=== PATIENT | male | born 1985 | race Caucasian/White ===

== ENCOUNTER 2023-05-17 16:06 | Outpatient (AMB) | payer OTHER, SELFPAY ==
--- NOTE | 2023-05-17 16:15 | MHC.OFFWIV ---
Intake Vital Signs 05/17/23 16:16 Height 5 ft 7 in Weight 175 lb 8 oz BMI 27.5 BP 114/80 Blood Pressure Location Rt brachial Position Sitting Pulse 80 Pulse Source Pulse Oximeter Temp 98.9 F Temp Source Oral Pulse Oximetry (%) 97 Oxygen Delivery Method Room Air Intake Visit Reasons: [employer] Upper AB Pain Intake Note: Pt presents to the office today for c/o upper abdominal pain since last night. Pt states it is more in the left side of his abdomen. Pt states he did have a fever this morning that was 100.0 Patient Tobacco Use Status: Former Tobacco user Allergies amoxicillin Allergy (Intermediate, Verified 05/17/23 16:18) Hives HPI HPI Comments History of Present Illness Details Patient is a 37-year-old male in today for a sick visit. Patient states that 1 month prior he caught a stomach bug where he had vomiting and diarrhea for 2 days. Patient states after that he caught an upper respiratory infection where he had headache and was taking ibuprofen frequently. Since then he has developed symptoms of stomach distension, left upper quadrant abdomen pain, gastric reflux. Patient states he was placed on omeprazole 20 mg with limited effect. He does have intermittent constipation and diarrhea. Denies blood in stool. Offer subjective fever last night, does not have fever at appointment today. [facility] Social History Household Members: Spouse Housing: House Alcohol intake: current Alcohol intake frequency: a few times a week Patient Tobacco Use Status: Former Tobacco user Use of substances other than those prescribed or required for medical reasons: Yes Substance Use Type: Marijuana Review of Systems Const Details: Constitutional : No Weight loss, No Fever, Admits Chills, No Fatigue, No Malaise ENT/Mouth : Admits sore throat, No Rhinorrhea Eyes: No Eye Pain, No Swelling, No Redness Cardiovascular : No Chest Pain, No SOB, No Dyspnea on Exertion, No Orthopnea, No Edema, No Palpitations Respiratory : No Cough, No Sputum, No Wheezing Gastrointestinal : No Nausea, No Vomiting, No Diarrhea, Amits some Constipation, No abdominal Pain, No Hematochezia, No Melena, Admits gas, Admits gastric reflux. Admits abdominal pain. Genitourinary : No Dysuria, No Urinary Frequency, No Hematuria, Musculoskeletal : No joint pain, No Myalgias, No Joint Swelling Skin : No Skin Lesions, No rash Neuro : No Weakness, No Numbness, No Dizziness, No Headache Psych : No Anxiety/Panic, No Depression Heme/Lymph: No Bruising, No Bleeding,No Lymphadenopathy Endocrine : No Polyuria, No Polydipsia All other systems reviewed and are negative Physical Exam Vital Signs: Last Vital Signs Temp 98.9 F 05/17/23 16:16 Pulse 80 05/17/23 16:16 BP 114/80 05/17/23 16:16 Pulse Ox 97 05/17/23 16:16 Oxygen Delivery Method Room Air 05/17/23 16:16 BMI result Body Mass Index 27.5 Vital signs reviewed stable. Const Other: Appearance: Alert.? Oriented X3.? No acute distress.? Head: Normocephalic, atraumatic. ENT: Pharynx erythema, cobblestone. Neck: Normal inspection.? Neck supple.? CVS: Normal heart rate and rhythm.? Pulses normal.? Respiratory: No respiratory distress.? Breath sounds normal.? Abdomen: +distention, +LUQ discomfort. +hyperactive bowel sounds. ? Neuro: Oriented X 3.? No motor deficit.? No sensory deficit. CN 2-12 intact Assessment & Plan Assessment & Plan (1) Abdominal pain: Comment: Will draw labs CBC, CMP, ESR, lipase, amylase. Will give patient pantoprazole sodium and for meeting to be taken as directed. Patient instructed he can also utilize simethicone for gas pain. Patient has established GI provider and PCP, should follow-up with them Code(s): R10.9 - Unspecified abdominal pain Qualifiers: Abdominal location: left upper quadrant Qualified Code(s): R10.12 - Left upper quadrant pain Plan: Take your medications as prescribed. If you were prescribed antibiotics today, it is important that you take your medication to their entirety, do not skip any doses, do not finish them early. Follow-up with your primary care provider this week. Return to the emergency department with new or worsening symptoms. Such as fevers, chills, chest pain, shortness of breath, nausea, vomiting, dizziness, headache, vision changes, lethargy In case of emergency call 911 Plan Follow-up with PCP and GI Orders: Orders Erythrocyte Sedimentation Rate Today R10.9 - Unspecified abdominal pain Lipase Today R10.9 - Unspecified abdominal pain Amylase Today R10.9 - Unspecified abdominal pain Complete Blood Count Auto Diff Today D72.829 - Elevated white blood cell count, unspecified Comprehensive Met. Panel Today Z91.89 - Other specified personal risk factors, not elsewhere classified Medications: New pantoprazole 20 mg PO DAILY 30 tabs 0RF famotidine 20 mg PO BEDTIME 30 tabs 0RF simethicone (Gas Relief (simethicone)) 180 mg PO DAILY 30 caps 0RF Coding Level of Care Code Est Pt Level 3 (49871) Diagnoses Left upper quadrant abdominal pain R10.12 Abdominal location: left upper quadrant Time Spent (min) 21
[2023-05-17 16:16] VITALS: BP 114/80; PULSE 80; TEMP 37.2; O2SAT 97; BMI 27.5
== END 2023-05-17 16:53 | disposition home or self-care (01) ==
PROVIDERS: Visit Provider Nurse Practitioner Primary Care
DX: R10.12 Left upper quadrant pain (principal)
CPT/HCPCS: 99204

== ENCOUNTER 2023-05-18 11:01 | Outpatient (REF) | payer OTHER, SELFPAY ==
[2023-05-18 13:34] LABS: MANUAL DIFF FLAG NO
[2023-05-18 13:49] LABS: Basophils Percent Auto 0.5 % (0-2); Eosinophils Percent Auto 0.9 % (0-4); Hematocrit 48.4 % (42.0-52.0); Hemoglobin 16.6 g/dl (14.0-18.0); Lymphocytes Absolute Auto 1.1 X10*3/uL (1.2-4.9); Lymphocytes Percent Auto 26.5 % (20-40); Mean Corpuscular HGB Conc 34.3 g/dl (31.0-36.0); Mean Corpuscular Hemoglobin 30.6 pg (27.0-33.0); Mean Corpuscular Volume 89.1 fL (80.0-98.0); Monocytes Absolute Auto 0.4 X10*3/uL (0.1-1.2); Monocytes Percent Auto 8.1 % (2-11); Neutrophils Absolute Auto 2.8 x10*3/uL (2.0-8.3); Platelet Count 200 X10*3/uL (160-400); Red Blood Count 5.43 X10*6/uL (4.60-5.80); Red Cell Distribution Width 12.4 % (11.0-16.0); White Blood Count 4.3 X10*3/uL (4.8-10.8)
[2023-05-18 14:03] LABS: Alanine Aminotransferase 173 U/L (0-40); Albumin Level 4.3 g/dL (3.5-5.0); Alkaline Phosphatase 118 U/L (39-117); Anion Gap 9 (12-20); Aspartate Amino Transferase 69 U/L (5-37); Bilirubin Total 1.7 mg/dL (0.0-1.0); Blood Urea Nitrogen 10 mg/dL (9-16); Calcium 9.2 mg/dL (8.4-10.2); Carbon Dioxide 30 mmol/L (22-29); Chloride 105 mmol/L (96-108); Estimated Glomerular Filt Rate > 60; Glucose Random 86 mg/dL (60-115); Lipase 20 U/L (8-78); Potassium 3.6 mmol/L (3.3-5.1); Sodium 140 mmol/L (135-145)
[2023-05-18 14:14] LABS: Amylase 29 U/L (28-100)
[2023-05-18 14:24] LABS: Erythrocyte Sedimentation Rate 5 MM/HR (0-15)
== END 2023-05-18 11:02 | disposition home or self-care (01) ==
LOC: HO.HMGCLDS 11:01
PROVIDERS: PCP Nurse Practitioner Primary Care; Visit Provider Nurse Practitioner Primary Care
DX: R10.9 Unspecified abdominal pain (principal); D72.829 Elevated white blood cell count, unspecified; Z91.89 Other specified personal risk factors, not elsewhere classified
CPT/HCPCS: 36415; 80053; 82150; 83690; 85025; 85652

== ENCOUNTER 2023-11-09 12:01 | Day surgery (SDC) | payer OTHER, SELFPAY ==
[2023-11-07 14:04] VITALS: BMI 26.3
--- NOTE | 2023-11-08 10:15 | P.CONAN_ITS ---
Documented by User: Yris Griffin NP 11/08/23 10:16 HPI - Anesthesia Eval Consult details Narrative: 38yo M for Upper Endoscopy PMFSH Active Problems Active Problems: All Active Problems Abdominal pain (Acute) Past Medical History Medical History Fatty liver Surgical History Surgical History Hx laparoscopic cholecystectomy Social History Social History Household Members: Spouse Housing: House Are you a primary caregiver assisted living to a significant other at home: No Do you presently have visiting nurse or other home services: No Alcohol intake: current Alcohol intake frequency: a few times a week Patient Tobacco Use Status: Former Tobacco user Use of substances other than those prescribed or required for medical reasons: Yes Substance Use Type: Marijuana Substance Use Frequency: Occasionally Have you been hit, kicked, punched, or otherwise hurt by someone within the past year? If so, by whom?: No Are you DNR?: No Advance Directives: No Advance Directives Information Provided: Yes Recently lost weight without trying: No Eating poorly because of decreased appetite: No Nutrition Risks: No Nutritional Risk Poor oral hygiene: No Meds Allergies Allergy/AdvReac Type Severity Reaction Status Date / Time amoxicillin Allergy Intermediate Hives Verified 05/17/23 16:18 Home Medications ?Medication ?Instructions ?Recorded ?Confirmed ?Last Taken ?Type colestipol 1 gram tablet 1 g PO DAILY 05/17/23 Unknown History Exam Height,Weight and Vital Signs: Height 5 ft 7 in Weight 76.204 kg Assessment and Plan Assessment Anesthesia Assessment: Chart Reviewed Documented by User: Meka Tavarez MD 11/09/23 13:15 PMFSH Past Medical History Medical History Fatty liver Surgical History Surgical History Hx laparoscopic cholecystectomy History of Problems with Anesthesia: No Social History Social History Household Members: Spouse Housing: House Are you a primary caregiver assisted living to a significant other at home: No Do you presently have visiting nurse or other home services: No Alcohol intake: current Alcohol intake frequency: a few times a week Patient Tobacco Use Status: Former Tobacco user Use of substances other than those prescribed or required for medical reasons: Yes Substance Use Type: Marijuana Substance Use Frequency: Occasionally Have you been hit, kicked, punched, or otherwise hurt by someone within the past year? If so, by whom?: No Are you DNR?: No Advance Directives: No Advance Directives Information Provided: Yes Recently lost weight without trying: No Eating poorly because of decreased appetite: No Nutrition Risks: No Nutritional Risk Poor oral hygiene: No Meds Allergies Allergy/AdvReac Type Severity Reaction Status Date / Time amoxicillin Allergy Intermediate Hives Verified 05/17/23 16:18 Home Medications ?Medication ?Instructions ?Recorded ?Confirmed ?Last Taken ?Type colestipol 1 gram tablet 1 g PO DAILY 05/17/23 Unknown History Exam Airway Mallampati Class: III TM Dist: >3cm Neck ROM: Full Loose/Missing/Broken Teeth: No Heart: RRR Lungs: CTA Assessment and Plan Assessment Anesthesia Assessment: Anesthesia Plan Discussed Final Anesthetic Review History of Problems with Anesthesia: No NPO: Yes ASA Class: II Final Preanesthetic Review: Meds/Allgs Chart Reviewed, Consent Obtained/Reviewed and Anes Risks/Benef Reviewed Patient Risk: Low Procedure Risk: Intermediate Anesthetic Plan Anesthetic Plan: MAC: Disposition: Standard PACU
[2023-11-09 12:10] VITALS: BMI 26.4
[2023-11-09 12:26] VITALS: BP 133/83; PULSE 64; RESP 16; TEMP 36.8; O2SAT 98
[2023-11-09] MEDS: Lactated Ringers 1,000 ML 100 ML IVCONT (12:33)
--- NOTE | 2023-11-09 12:53 | MHC.SHP ---
Pre-Procedural Eval Section A - 24 Hr Update-Section A only Date of Service: 11/09/23 Section B - Complete if H&P > 30 days Chief Complaint: Dysphagia, unspecified Details of Present Illness: see H&P no changes Relevant Family History (Specify if Yes): No Relevant Social History: None Present Medications: see Short Stay Collaborative assessment Medical History: No relevant PMH History of Previous Operations: No relevant previous surgery Allergies: Allergies Allergy/AdvReac Type Severity Reaction Status Date / Time amoxicillin Allergy Intermediate Hives Verified 05/17/23 16:18 Review of Systems Sugical H&P ROS: Negative: Constitution, Cardiovascular, Respiratory, Neurological, Psychiatric, Hem-Onc, Allergic/Immunologic, Gastrointestinal, Genitourinary, Musculoskeletal, Integumentary, Endocrine and Eyes/Ears/Nose/Throat Exam Surgical H&P Exam: Normal: HEENT, Normal: Heart, Normal: Lungs, Normal: Extremities, Normal: Abdomen, Normal: Skin and Normal: Neurological Plan Diagnosis/Plan: Unchanged I have reviewed the history and physical and performed a pertinent physical examination on my patient. No changes have occurred unless specified. Time Spent With Patient Time: Total time managing care of this patient today ____ minutes.
[2023-11-09 13:35] VITALS: BP 97/61; PULSE 57; RESP 18; TEMP 36.6; O2SAT 99
[2023-11-09 13:50] VITALS: BP 104/58; PULSE 54; RESP 16; O2SAT 97
[2023-11-09 14:05] VITALS: BP 110/69; PULSE 57; RESP 16; TEMP 36.3; O2SAT 97
--- NOTE | 2023-11-09 15:10 | OP_ITS ---
DATE OF SERVICE: 11/09/2023 SURGEON: Samir Frank MD INDICATIONS: Left upper quadrant pain. PREOPERATIVE DIAGNOSIS: POSTOPERATIVE DIAGNOSIS: PROCEDURE PERFORMED: Upper endoscopy with biopsy. ESTIMATED BLOOD LOSS: COMPLICATIONS: ANESTHESIA: Medications, monitored anesthesia care. ASSISTANTS: SPECIMENS: DESCRIPTION OF PROCEDURE: A history and physical performed. The risks and benefits of the procedure were explained to the patient. Informed consent was obtained. The patient was placed in the left lateral decubitus position. The Olympus video gastroscope was introduced into the esophagus, stomach, and duodenum. Examination was performed. The scope was removed. He tolerated the procedure well and was returned to the recovery room in stable condition. FINDINGS: Esophagus: The esophagus was normal. There was an irregular EG junction. Stomach showed no evidence of masses, ulcers, or polyps. Duodenum: The bulb and second portion were normal. Biopsies were obtained from the EG junction, antrum, and second portion of the duodenum. IMPRESSION: Normal upper endoscopy. RECOMMENDATION: Follow up the biopsy results. MD GILDA Tobias/FINESSE / [id number]
== END 2023-11-09 14:54 | disposition home or self-care (01) ==
PROVIDERS: PCP Nurse Practitioner Family; Visit Provider Internal Medicine Gastroenterology
PROC: 0DJ08ZZ Inspection of Upper Intestinal Tract, Via Natural or Artificial Opening Endoscopic (ICD-10-PCS; CPT 43235; principal; 2023-11-09 13:00)
DX: R13.10 Dysphagia, unspecified (principal); K76.0 Fatty (change of) liver, not elsewhere classified; F12.90 Cannabis use, unspecified, uncomplicated; Z90.49 Acquired absence of other specified parts of digestive tract; Z87.891 Personal history of nicotine dependence; Z79.899 Other long term (current) drug therapy
CPT/HCPCS: 43239; 88305; J2704